=== PATIENT | female | born 1980 | race Hispanic/Latino ===

== ENCOUNTER → 2017-02-18 | Outpatient (CLI) | payer SELFPAY ==
[~2017-02-18] MED LIST: ENDOCET 5-3251 EACH PO; IBUPROFEN800 MG PO
== END | disposition home or self-care (01) ==
LOC: RAD 13:00
DX: Z3A.20 20 weeks gestation of pregnancy (principal); O09.90 Supervision of high risk pregnancy, unspecified, unspecified trimester; O34.219 Maternal care for unspecified type scar from previous cesarean delivery
CPT/HCPCS: 76811

== ENCOUNTER 2017-06-28 05:23 | Inpatient (IN) | payer OTHER ==
[~2017-06-28] VITALS: Ht 149.9 cm; Wt 63.5 kg
[2017-06-28] VITALS (9 sets, daily range): BP systolic 106–139; BP diastolic 60–88
[2017-06-29 06:50] LABS: BASOPHIL (%) 0.3 % (0-1); EOSINOPHIL (%) 0.5 % (0-5); HEMATOCRIT 32.7 % (36.0-46.0); HEMOGLOBIN 10.5 G/DL (11.9-15.5); IMMATURE GRANULOCYTE (%) 0.9 % (0.0-0.7); LYMPHOCYTE (%) 29.3 % (15-42); LYMPHOCYTE COUNT 2.2 K/uL (1.0-2.8); MCH 27.6 PG (29.0-34.0); MCHC 32.1 G/DL (30.0-36.0); MCV 86.1 FL (83-99); MONOCYTE (%) 5.8 % (3-12); MONOCYTE COUNT 0.4 K/uL (0-0.8); NEUTROPHIL (%) 63.2 % (45-76); NEUTROPHIL COUNT 4.7 K/uL (1.8-6.4); PLATELET COUNT 203 K/uL (156-360); RBC DIS.WIDTH-CV 14.9 % (11.8-14.6); RBC DIS.WIDTH-SD 46.5 % (39-53); WHITE BLOOD COUNT 7.4 K/uL (4.1-10.2)
[2017-06-29 07:26] VITALS: BP 113/63
[2017-06-29] MEDS ORDERED: ERRIN0.35 MG PO (10:34)
[2017-06-29 14:31] VITALS: BP 110/68
[2017-06-30 07:16] VITALS: BP 107/65
== END 2017-06-30 10:30 | disposition home or self-care (01) | DRG 775 ==
LOC: LDRP-OP 05:23 → 2WEST 05:24
PROVIDERS: Advanced Practice Midwife
PROC: 10E0XZZ Delivery of Products of Conception, External Approach (ICD-10-PCS; principal; 2017-06-28)
DX: O34.219 Maternal care for unspecified type scar from previous cesarean delivery (principal); Z3A.39 39 weeks gestation of pregnancy; O99.824 Streptococcus B carrier state complicating childbirth; Z37.0 Single live birth; Z68.28 Body mass index [BMI] 28.0-28.9, adult; E66.3 Overweight; O99.214 Obesity complicating childbirth; O62.3 Precipitate labor
CPT/HCPCS: 85025; 90686; J2590